=== PATIENT | female | born 1945 | race Caucasian/White ===

== ENCOUNTER 2017-05-12 22:10 | Emergency (ER) | payer MEDICARE ==
[~2017-05-12] VITALS: Ht 175.3 cm; Wt 81.8 kg
[~2017-05-12 22:10] MED LIST: CARB0.5D16 EACH EYE; COLA100C PO; GABA300 PO; KEPP1000 PO; LISI-360 PO; LORA-474 PO; Levothyroxine Sodium PO; MVI PO; SODI1 PO; ZOLP1TAB32 PO; [UNRECOGNIZED DRUG - CODE] PO
[2017-05-12 22:16] VITALS: BP 140/63; PULSE 103; RESP 16; O2SAT 97
[2017-05-12] MEDS ORDERED: DEXAMETHASONE SOD PHOS 20 MG/5 ML VIAL IV PUSH ONE (22:45)
[2017-05-12] MEDS ORDERED: FURO20TA PO (22:56)
[2017-05-12] MEDS ORDERED: FENT75DI T-DERMAL (22:56)
[2017-05-12] MEDS ORDERED: DEXT1CAP12 PO (22:56)
[2017-05-12] MEDS ORDERED: SERO400T PO (22:56)
[2017-05-12] MEDS ORDERED: SENE8.6T3 (22:56)
[2017-05-12] MEDS ORDERED: LORA0.5T PO (22:56)
[2017-05-12] MEDS ORDERED: VITA100021 SL (22:56)
[2017-05-12] MEDS ORDERED: MILKSUS PO (22:56)
[2017-05-12] MEDS ORDERED: ATOR10TA15 PO (22:56)
[2017-05-12] MEDS ORDERED: POLY17S PO (22:56)
[2017-05-12] MEDS ORDERED: ASPI1TAB57 PO (22:56)
[2017-05-12] MEDS ORDERED: ZOLP5TAB3 PO (22:56)
[2017-05-12] MEDS ORDERED: SERO50TA PO (22:56)
[2017-05-12] MEDS ORDERED: TYLE325T PO (22:56)
[2017-05-12] MEDS ORDERED: LISI-515 PO (22:56)
[2017-05-12] MEDS ORDERED: ONDA8TAB7 PO (22:56)
[2017-05-12] MEDS ORDERED: LEVO100T5 PO (22:56)
[2017-05-12] MEDS ORDERED: OXYC1TAB35 PO (22:56)
[2017-05-12] MEDS ORDERED: FOLI800T PO (22:56)
[2017-05-12] MEDS ORDERED: LEVE500T8 PO (22:56)
[2017-05-12] MEDS ORDERED: GABA800T PO (22:56)
--- NOTE | 2017-05-12 23:33 | PD ---
HPI Chief Complaint: Allergic/Adverse Reaction Time Seen by Provider: 22:37 Travel History International Travel<30 days: No Contact w/Intl Traveler<30days: No Traveled to known affect area: No History of Present Illness HPI Patient is a 71-year-old female presents to the emergency department for evaluation of possible allergic reaction, patient states she has been having itchy hives on her chest abdomen back and upper extremities for the past few days, she has been taking Benadryl but without significant relief, she cannot think of any exacerbating factors is never had hives like this before. Denies any shortness of breath denies any throat swelling lip swelling abdominal pain nausea vomiting or diarrhea. She states the symptoms are severe, gradually worsening over the past few days, associated signs symptoms as above PFSH Past Medical History Asthma: No Autoimmune Disease: No Anxiety: Yes Depression: Yes Heart Rhythm Problems: No Cancer: No Cardiovascular Problems: No High Cholesterol: Yes Chemotherapy: No Congestive Heart Failure: No COPD: No Dementia: Yes Diabetes: No Diminished Hearing: No Endocrine: Yes (ESTROGEN PATCH WEEKLY) Genitourinary: No Hypertension: Yes (CURRENT, MED CONTROLLED) Immune Disorder: No Musculoskeletal: Yes (SCIATICA) Neurologic: Yes Psychiatric: Yes Reproductive: No Respiratory: No Immunizations Current: Yes Radiation Therapy: No Seizures: Yes Sickle Cell Disease: No Sleep Apnea: No Thyroid Disease: Yes Menopausal: Yes Past Surgical History Abdominal Surgery: No AICD: No Arteriovenous Shunt: No Body Medical Devices: TENS UNIT IN ABDOMINAL CAVITY Cardiac Surgery: No Section: Yes Ear Surgery: No Endocrine Surgery: No Eye Surgery: Yes (BILATERAL CATARACS) Genitourinary Surgery: No Gynecologic Surgery: Yes (HYSTERECTOMY) Hysterectomy: Yes Insulin Pump: No Joint Replacement: No Oral Surgery: No Pacemaker: No Thoracic Surgery: No Other Surgery: Yes Social History Alcohol Use: Yes (ETOH ABUSE) Tobacco Use: No Substance Use: Yes Allergies-Medications (Allergen,Severity, Reaction): Coded Allergies: Sulfa (Sulfonamide Antibiotics) (Unverified Allergy, Severe, 11/22/16) ciprofloxacin (Unverified Allergy, Severe, 11/22/16) codeine (Unverified Allergy, Severe, 11/22/16) fluconazole (Unverified Allergy, Severe, 11/22/16) hydrochlorothiazide (Unverified Allergy, Severe, 11/22/16) morphine (Unverified Allergy, Severe, 11/22/16) penicillin G (Unverified Allergy, Severe, 11/22/16) triamterene (Unverified Allergy, Severe, 11/22/16) MRI PRECAUTION (Verified Adverse Reaction, Severe, 05/17/14) stimulator wires in cord Dr Allen declined scanning of patient 10-04-2013 [facility] Reported Meds & Prescriptions Reported Meds & Active Scripts Active Prednisone 20 Mg Tab 60 Mg PO DAILY 5 Days Reported Zolpidem (Zolpidem Tartrate) 5 Mg Tab 5 Mg PO HS PRN Vitamin B-12 (Cyanocobalamin) 1,000 Mcg Subl 1,000 Mcg SL DAILY Senexon (Sennosides) 8.6 Mg Tab Robafen Cough (Dextromethorphan HBr) 15 Mg Cap 30 Mg PO Q6H PRN Seroquel (Quetiapine Fumarate) 50 Mg Tab 50 Mg PO DAILY Seroquel (Quetiapine Fumarate) 400 Mg Tab 400 Mg PO HS Polyethylene Glycol 3350 Powder (Polyethylene Glycol) 17 Gram Pow 17 Gm PO DAILY Oxycodone-Acetaminophen 7.5-325 mg Tab 1 Tab PO Q6H PRN Ondansetron (Ondansetron HCl) 8 Mg Tab 8 Mg PO TID Milk of Magnesia Liq (Magnesium Hydroxide) 400 Mg/5 Ml Susp 30 Ml PO DAILY PRN Lorazepam 0.5 Mg Tab 0.5 Mg PO Q8H PRN Lisinopril 20 Mg Tab 20 Mg PO DAILY Levothyroxine (Levothyroxine Sodium) 100 Mcg Tab 100 Mcg PO DAILY Levetiracetam 500 Mg Tab 500 Mg PO BID Gabapentin 800 Mg Tab 800 Mg PO TID Furosemide 20 Mg Tab 20 Mg PO DAILY Folic Acid 0.8 Mg Tab 100 Mcg PO DAILY Fentanyl Patch 72 HR (Fentanyl) 75 Mcg/Hr Patch 75 Mcg T-DERMAL Q72H Remove old patch when new one placed. Atorvastatin (Atorvastatin Calcium) 10 Mg Tab 10 Mg PO HS Aspirin 81 (Aspirin) 81 Mg Tabdr 81 Mg PO DAILY Tylenol (Acetaminophen) 325 Mg Tab 650 Mg PO Q6H PRN Review of Systems Except as stated in HPI: all other systems reviewed are Neg Physical Exam Narrative GENERAL: Well-developed well-nourished in no obvious distress SKIN: Focused skin assessment warm/dry. The patient has generalized hives slightly raised over the areas described in the HPI. No desquamation, euthermic to palpation. They are fairly coalescent especially on her chest and abdomen peer HEAD: Atraumatic. Normocephalic. EYES: Pupils equal and round. No scleral icterus. No injection or drainage. ENT: No nasal bleeding or discharge. Mucous membranes pink and moist. NECK: Trachea midline. No JVD. CARDIOVASCULAR: Regular rate and rhythm. No murmur appreciated. RESPIRATORY: No accessory muscle use. Clear to auscultation. Breath sounds equal bilaterally. GASTROINTESTINAL: Abdomen soft, non-tender, nondistended. Hepatic and splenic margins not palpable. MUSCULOSKELETAL: No obvious deformities. No clubbing. No cyanosis. No edema. NEUROLOGICAL: Awake and alert. No obvious cranial nerve deficits. Motor grossly within normal limits. Normal speech. PSYCHIATRIC: Appropriate mood and affect; insight and judgment normal. Data Data Last Documented VS Vital Signs Date Time Temp Pulse Resp B/P (MAP) Pulse Ox O2 Delivery O2 Flow Rate FiO2 05/13/17 03:56 05/13/17 01:13 85 18 96 Room Air Orders Orders Dexamethasone Inj (Decadron Inj) (05/12/17 22:45) Acetaminophen (Tylenol) (05/13/17 03:15) Ed Discharge Order (05/13/17 03:23) MDM Medical Decision Making Medical Screen Exam Complete: Yes Emergency Medical Condition: Yes Differential Diagnosis Hives, allergic reaction, angioedema unlikely. Narrative Course Patient room to the emergency department, observed for 6 hours after Decadron given in the emergency depart and Benadryl was given by EMS. Airway remained widely patent, vital signs stable, she has had no further complaints in the emergency department and her symptoms are getting better except for the rash. At this time she is stable for discharge, steroids for the next few days and Benadryl as needed. Diagnosis Primary Impression: Hives Med/Other Pt SpecificInfo: Prescription(s) given Scripts Prednisone (Prednisone) 20 Mg Tab 60 MG PO DAILY for 5 Days, #15 TAB 0 Refills Prov: Yossi Craig MD 05/13/17 Disposition: 01 DISCHARGE HOME Condition: Stable Yossi Craig MD May 12, 2017 23:33
[2017-05-13 00:46] VITALS: BP 85/48; PULSE 81; RESP 18; O2SAT 95
[2017-05-13 01:13] VITALS: BP 114/57; PULSE 85; RESP 18; O2SAT 96
[2017-05-13] MEDS ORDERED: ACETAMINOPHEN 325 MG TAB PO ONE (03:15)
[2017-05-13] MEDS ORDERED: PRED20 PO (03:21)
== END 2017-05-13 03:56 | disposition home or self-care (01) ==
LOC: NEPE 22:10
DX: L50.9 Urticaria, unspecified (principal); F32.9 Major depressive disorder, single episode, unspecified; E78.00 Pure hypercholesterolemia, unspecified; F03.90 Unspecified dementia, unspecified severity, without behavioral disturbance, psychotic disturbance, mood disturbance, and anxiety; I10 Essential (primary) hypertension; Z79.82 Long term (current) use of aspirin; Z88.5 Allergy status to narcotic agent; Z88.2 Allergy status to sulfonamides; Z88.0 Allergy status to penicillin; Z88.8 Allergy status to other drugs, medicaments and biological substances
CPT/HCPCS: 96374; 99284; J1100